=== PATIENT | male | born 1995 | race Caucasian/White ===

== ENCOUNTER 2017-10-02 18:12 | Emergency (ER) | payer MEDICAID ==
[~2017-10-02] VITALS: Ht 167.6 cm; Wt 73.0 kg
[2017-10-02 18:18] VITALS: BP 130/72
[2017-10-02] MEDS ORDERED: ACET-75 PO (19:39)
[2017-10-02] MEDS ORDERED: IBUP-1986 PO (19:39)
[2017-10-02] MEDS ORDERED: ONDA4TAB12 PO (19:39)
== END 2017-10-02 19:52 | disposition home or self-care (01) ==
LOC: ER 18:14
DX: S09.90XA Unspecified injury of head, initial encounter (principal); F07.81 Postconcussional syndrome; F15.10 Other stimulant abuse, uncomplicated; F11.10 Opioid abuse, uncomplicated; F17.210 Nicotine dependence, cigarettes, uncomplicated; Z56.0 Unemployment, unspecified; Z79.899 Other long term (current) drug therapy; W50.0XXA Accidental hit or strike by another person, initial encounter; Y93.89 Activity, other specified; Y92.89 Other specified places as the place of occurrence of the external cause; Y99.8 Other external cause status
CPT/HCPCS: 82948; 99283

== ENCOUNTER 2018-08-17 15:40 | Inpatient (IN) | payer MEDICAID ==
[~2018-08-17] VITALS: Ht 172.7 cm; Wt 68.1 kg
[~2018-08-17 15:40] MED LIST: NO HOME MEDS
[2018-08-17 21:01] VITALS: BP 117/78
[2018-08-17] MEDS ORDERED: traZODone 50mg tablet PO PRN (21:45)
[2018-08-17] MEDS ORDERED: NICOTINE POLACRILEX 4 MG LOZENGE BC PRN (21:45)
[2018-08-17] MEDS ORDERED: OLANZapine 2.5MG tablet PO SCH (21:48)
[2018-08-17] MEDS ORDERED: NICOTINE POLACRILEX 2 MG LOZENGE MM PRN ×2 (21:52→21:53)
[2018-08-17] MEDS ORDERED: tuberculin, purif. prot. deriv. 5 units/0.1ml ID ONE (22:05)
[2018-08-17] MEDS: traZODone 50mg tablet PO PRN (22:05)
[2018-08-17] MEDS ORDERED: mag hydrox/Alum hydrox/simeth 30ml oral suspension PO PRN (22:13)
[2018-08-17] MEDS ORDERED: magnesium hydroxide 30ml (MOM) UD suspension PO PRN (22:13)
--- NOTE | 2018-08-18 01:09 | NUR ---
NURSING ADMISSION NOTE: Patient arrived on the unit on 08/17/2018 at 20:20 via wheelchair. He was placed on a 5150 for DTS/DTO. Pt reports that for the past 5 years he has been hearing the voices however they started getting worse within the past month. He states that the voices told him to harm his and children and also himself but that he does not want to hurt them and he states that he does no want to hurt anyone else. He did threaten his family verbally but says he would never actually hurt them. He reports that the voices have also been telling him to hurt himself and to crash his car. He does not see a psychiatrist and is not on any medications. Pt reports he has never been hospitalized before. He denies any h/o self injurious gestures. He does report his biological father and his biological mother's mother both committed suicide. He reports he had a suicide attempt by overdosing on pills 5 years ago but was never hospitalized for it. Patient denies any current suicidal or homicidal ideations. He denies currently hearing voices but says he starts to hear them when he feels he is under stress. He has been using meth and heroin regularly "for a year or two." He smokes both. He denies any current symptoms of withdrawal . Patient is very cooperative and calm, he appears to be relieved to be on the unit.
[2018-08-18 07:19] LABS: HEMOGLOBIN A1C 4.8 % (4.5-6.2)
[2018-08-18 07:21] LABS: CHOL/HDL RATIO 3.2 (0.00-4.99); CHOLESTEROL 142 MG/DL (0-200); HDL CHOLESTEROL 45 MG/DL (35-60); LDL CHOLESTEROL 89 MG/DL (50-100); TRIGLYCERIDES 93 MG/DL (20-135)
[2018-08-18] MEDS: nicotine 21mg patch - 24 hr TD SCH (07:50)
[2018-08-18 08:00] VITALS: BP 106/70
[2018-08-18] MEDS: acetaminophen 325mg tablet PO PRN (09:26)
[2018-08-18] MEDS: hydrOXYzine 25 MG tablet PO PRN ×2 (10:23→15:41)
[2018-08-18] MEDS ORDERED: venlafaxine XR 37.5mg cap (Q24H) PO ONE (14:25)
--- NOTE | 2018-08-18 15:10 | NUR ---
Nursing Progress Note Legal hold: 5150 Client on voluntary/involuntary status for GD/DTS/DTO: dts/ dto Report received from nurse with use of SBAR: ELIANA Garza Why are they here: The patient had a disagreement with his girlfriend. He threatened to kill himself and also threatened to kill the girlfriend and her two children. He was having suicidal and homicidal thoughts, was brought to ER by girlfriend. Assessment What has happened this shift: The patient is tearful and depressed. He feels shame and guilt over threatening his family whom he loves. He is living at his grandmother's place in [place], he is trying to find a job and it is creating much stress with the family. He stated his father shot himself in the house when he was 4 years old. His mother is alive and lives in [place] but does not see her very much. He states he had been hearing a voice tell himself to kill himself but stated today he thinks it is just his own thoughts and states it is his own voice. He is very remorseful and wants to go home. He did attend groups today and is having some anxiety. He reports he has smoked heroin and meth in the past but very sporadically. He states he is not in withdrawal. He denies wanting to and says, "I just want to go home to my girlfriend." S/I, H/I: Denies A/VH: Denies Sleep: Napped ADL's: Self Group attendance:Yes Were meds taken:Yes Any med S/E: No Mental Status Exam Appearance: disheveled Eye contact:Good Behavior: Cooperative Speech: Normal Mood: Depressed Affect: Sad/tearful Thought process: Remorseful Thought Content: Wants to go home Cognition:alert and oriented Insight: poor Judgment:poor Interventions PRN's used:hydroxyzine Therapeutic interventions: Active listening, 1:1 assessment, q15m safety checks, therapeutic environment, reassurance Restraints/seclusion/emergency medication: None Justification of Continued Inpatient Treatment: Recent suicidal and homicidal thoughts. Patient requires further stabilization before returning to community
--- NOTE | 2018-08-18 16:47 | NUR ---
Malnutrition consult. Patient has no muscle weakness, no edema, documented weight history shows a 11 lb loss in 11 months, a 9% loss. Three days ago pt was documented at 70 kg on chair scale, currently 68 kg on standing scale, different weights may be r/t different scale types. Pt is 97% of his IBW. Patient has h/o polysubstance abuse which is associated with loss of appetite and weight loss. Two meals documented so far, refused one and ate 67% of the second meal. At this time patient does not meet criteria for malnutrition however will continue to monitor PO intake for further assessment. Addendum: 08/18/18 at [address] Amended: Links added.
[2018-08-18 20:00] VITALS: BP 123/79
[2018-08-18] MEDS ORDERED: ondansetron 4mg rapidly disintigrating tab PO ONE (20:05)
[2018-08-18] MEDS: traZODone 50mg tablet PO PRN (20:43)
[2018-08-18] MEDS: OLANZapine 2.5MG tablet PO SCH (20:43)
--- NOTE | 2018-08-19 01:43 | NUR ---
Nursing Progress Note Legal hold: 5150 Client on voluntary/involuntary status for GD/DTS/DTO: dts/ dto Report received from nurse with use of SBAR: ELIANA Perez Why are they here: The patient reports being under a lot of stress and arguing with his family. He threatened to kill himself and also threatened to kill the girlfriend and her two children. He was having suicidal and homicidal thoughts, was brought to ER by girlfriend. He had been reporting hearing voices x5 years but has no past psychiatric hx. Assessment What has happened this shift: Patient's /girlfriend visited this shift. They appeared very happy to see one another and smiled and held hands and talked until she had to leave. After she left patient laid down in his room and hit the call abreu multiple times wanting his HS medications. Pt was told it was too early for them at the time, he verbalized understanding. He then reported feeling nauseous, a one time dose of 4mg Zofran was given, which he said helped. He then hit the call abreu and reported he had hiccups and wasn't sure what to do, policy writer typist advised patient to sip some water and try to rest. Patient denies any current SI/HI/AH/VH. Magazine Editor asked patient if the "voices " he reported on admission were auditory hallucinations or his own thoughts. Magazine Editor described to him what intrusive thoughts were and he responded by saying, "intrusive thoughts, yes, that is exactly what it is. It is my own thoughts it's just I don't want those kind of thoughts." Patient denies having any intrusive thoughts of SI or HI this shift. S/I, H/I: Denies A/VH: Denies Sleep: see sleep assessment notation ADL's: Self Group attendance: hourly shift, no groups Were meds taken:Yes Any med S/E: None reported, none observed Mental Status Exam Appearance: disheveled, needs to shower Eye contact: fair Behavior: Cooperative Speech: Normal rate and rhythm Mood: anxious Affect: depressed Thought process: linear Thought Content: circumstantial Cognition:alert and oriented Insight: poor Judgment:poor Interventions PRN's used: zofran, nicotine sidney Therapeutic interventions: Active listening, 1:1 assessment, q15m safety checks, therapeutic environment, reassurance Restraints/seclusion/emergency medication: None Justification of Continued Inpatient Treatment: Recent suicidal and homicidal thoughts. Patient requires further stabilization before returning to community
[2018-08-19 07:46] VITALS: BP 116/72
[2018-08-19] MEDS: venlafaxine XR 75mg capsule (Q24H) PO SCH (07:53)
[2018-08-19] MEDS: nicotine 21mg patch - 24 hr TD SCH (07:53)
[2018-08-19] MEDS: hydrOXYzine 25 MG tablet PO PRN ×2 (07:53→21:00)
[2018-08-19] MEDS: acetaminophen 325mg tablet PO PRN ×2 (16:27→21:01)
--- NOTE | 2018-08-19 16:31 | NUR ---
Nursing Progress Note Legal hold: 5150 Client on voluntary/involuntary status for GD/DTS/DTO: dts/ dto Report received from nurse with use of SBAR: ELIANA Garza Why are they here: The patient reports being under a lot of stress and arguing with his family. He threatened to kill himself and also threatened to kill the girlfriend and her two children. He was having suicidal and homicidal thoughts, was brought to ER by girlfriend. He had been reporting hearing voices x5 years but has no past psychiatric hx. Assessment What has happened this shift: The patient was asleep at change of shift. Reported sleeping well. Up to breakfast and all other meals. Went to groups and had a visit this morning with his girlfriend and his grandmother. They all sat in group room at a table together and appeared to have a nice visit. Reports DONOVAN several times today for which he got Tylenol. He states, "I'm depressed." Has difficulty articulating his feelings and thoughts. States he wants to get into a recovery program and is anxious to get started . He would like to leave and asks how much longer he will be here. Depressed mood, mildly anxious affect. He is coping. He is med compliant. Denies SI and AH stating, I hear my own thoughts. S/I, H/I: Denies A/VH: Denies Sleep: Napped ADL's: Self Group Yes Were meds taken:Yes Any med S/E: None reported, none observed Mental Status Exam Appearance: Clean and neat Eye contact: good Behavior: Cooperative Speech: Normal rate and rhythm Mood: Depressed Affect: mildly anxious Thought process: linear Thought Content: circumstantial Cognition:alert and oriented Insight: poor Judgment:poor Interventions PRN's used: Atarax, Tylenol Therapeutic interventions: Active listening, 1:1 assessment, q15m safety checks, therapeutic environment, reassurance Restraints/seclusion/emergency medication: None Justification of Continued Inpatient Treatment: Recent suicidal and homicidal thoughts. Patient requires further stabilization before returning to community
[2018-08-19 20:00] VITALS: BP 130/82
[2018-08-19] MEDS: traZODone 50mg tablet PO PRN (20:59)
[2018-08-19] MEDS: OLANZapine 2.5MG tablet PO SCH (20:59)
--- NOTE | 2018-08-19 23:33 | NUR ---
Nursing Progress Note Legal hold: 5150 Client on voluntary/involuntary status for GD/DTS/DTO: dts/ dto Report received from nurse with use of SBAR: ELIANA Perez Why are they here: The patient reports being under a lot of stress and arguing with his family. He threatened to kill himself and also threatened to kill the girlfriend and her two children. He was having suicidal and homicidal thoughts, was brought to ER by girlfriend. He had been reporting hearing voices x5 years but has no past psychiatric hx. Assessment What has happened this shift: Patient's "" visited again this shift. They sit in the community room smiling and staring at one another happily. After she left pt states they had a good visit and he feels he is ready to go home tomorrow. He said he talked to the physician and he believes he will be released. We talked about the importance of taking medications as prescribed, and early intervention. He voiced understanding. He denies any current SI/HI/AH/VH. S/I, H/I: Denies A/VH: Denies Sleep: see sleep assessment notation ADL's: Self Group attendance: graphic design intern, no groups Were meds taken:Yes Any med S/E: None reported, none observed Mental Status Exam Appearance: WNL Eye contact: fair Behavior: Cooperative Speech: Normal rate and rhythm Mood: slightly anxious Affect: upbeat Thought process: linear Thought Content: focused on wanting to go home Cognition:alert and oriented Insight: fair Judgment:fair Interventions PRN's used:hydroxyzine, Tylenol Therapeutic interventions: Active listening, 1:1 assessment, q15m safety checks, therapeutic environment, reassurance Restraints/seclusion/emergency medication: None Justification of Continued Inpatient Treatment: Recent suicidal and homicidal thoughts. Patient requires further stabilization before returning to community
[2018-08-20 08:00] VITALS: BP 111/64
[2018-08-20] MEDS: venlafaxine XR 75mg capsule (Q24H) PO SCH (08:17)
[2018-08-20] MEDS: nicotine 21mg patch - 24 hr TD SCH (08:21)
[2018-08-20] MEDS: acetaminophen 325mg tablet PO PRN (14:34)
[2018-08-20] MEDS ORDERED: HYDR-3686 PO (15:42)
[2018-08-20] MEDS ORDERED: TRAZ-218 PO (15:42)
[2018-08-20] MEDS ORDERED: VENL75CA61 PO (15:42)
--- NOTE | 2018-08-20 18:03 | NUR ---
Nursing Discharge Note Pt discharged at 1805 accompanied by his girlfriend and back to his residence in [place]. Pt denies SI, in pleasant mood with good range of affect and has been improving since admission and currently in no acute physical or emotional distress. His valuables have been inventoried and returned to him. Discharge medications have been called into pt's pharmacy in [place].
== END 2018-08-20 18:05 | disposition home or self-care (01) | DRG 751 ==
LOC: ADULT MH 15:40
PROVIDERS: ADMIT Psychiatry & Neurology Psychiatry; ATTEND Psychiatry & Neurology Psychiatry
DX: F33.1 Major depressive disorder, recurrent, moderate (principal); R45.851 Suicidal ideations; F29 Unspecified psychosis not due to a substance or known physiological condition; F15.159 Other stimulant abuse with stimulant-induced psychotic disorder, unspecified; F12.20 Cannabis dependence, uncomplicated; F17.210 Nicotine dependence, cigarettes, uncomplicated; F41.9 Anxiety disorder, unspecified
CPT/HCPCS: 36415; 80061; 83036; 87070; Q0177

== ENCOUNTER 2019-03-26 02:45 | Emergency (ER) | payer MEDICAID ==
[~2019-03-26] VITALS: Ht 167.6 cm; Wt 72.0 kg
[~2019-03-26 02:45] MED LIST changes: +HYDR-3686 PO; +TRAZ-251 PO; +VENL75CA61 PO
[2019-03-26 02:46] VITALS: BP 134/72
[2019-03-26] MEDS ORDERED: acetaminophen 325mg tablet PO ONE (03:30)
== END 2019-03-26 03:52 | disposition home or self-care (01) ==
LOC: ER 02:45
DX: S00.81XA Abrasion of other part of head, initial encounter (principal); F12.90 Cannabis use, unspecified, uncomplicated; F15.90 Other stimulant use, unspecified, uncomplicated; F14.90 Cocaine use, unspecified, uncomplicated; F11.90 Opioid use, unspecified, uncomplicated; F10.99 Alcohol use, unspecified with unspecified alcohol-induced disorder; Z56.0 Unemployment, unspecified; Z79.899 Other long term (current) drug therapy; Y04.8XXA Assault by other bodily force, initial encounter; Y93.89 Activity, other specified; Y92.89 Other specified places as the place of occurrence of the external cause; Y99.8 Other external cause status; Y90.9 Presence of alcohol in blood, level not specified
CPT/HCPCS: 70450; 99284

== ENCOUNTER 2021-03-01 01:25 | Emergency (ER) | payer MEDICAID ==
[~2021-03-01] VITALS: Ht 170.2 cm; Wt 71.8 kg
[2021-03-01] MEDS ORDERED: naloxone 0.4 mg/ml inj IV ONE (01:35)
[2021-03-01] MEDS ORDERED: normal saline 1000ML IV soln IVB ONE ×2 (01:35→04:10)
--- NOTE | 2021-03-01 02:09 | NUR ---
Pt moving too much for EKG and Tech already talked to Dr Gardner about that.
[2021-03-01] MEDS ORDERED: naloxone 0.4 mg/ml inj IV PRN (03:45)
[2021-03-01] MEDS ORDERED: ONDA4TAB6 PO (04:07)
[2021-03-01] MEDS ORDERED: ondansetron/PF 4mg/2ml inj IV ONE (04:10)
[2021-03-01 05:10] VITALS: BP 120/83
== END 2021-03-01 05:12 | disposition home or self-care (01) ==
LOC: ER 01:25
DX: T40.1X1A Poisoning by heroin, accidental (unintentional), initial encounter (principal); T40.411A Poisoning by fentanyl or fentanyl analogs, accidental (unintentional), initial encounter; F12.90 Cannabis use, unspecified, uncomplicated; F15.90 Other stimulant use, unspecified, uncomplicated; F14.90 Cocaine use, unspecified, uncomplicated; F11.90 Opioid use, unspecified, uncomplicated; Z72.89 Other problems related to lifestyle; Z56.0 Unemployment, unspecified; Z79.899 Other long term (current) drug therapy; Y92.89 Other specified places as the place of occurrence of the external cause
CPT/HCPCS: 96361; 96374; 96375; 96376; 99284; J2310; J2405; J7030

== ENCOUNTER 2022-10-29 13:00 | Emergency (ER) | payer MEDICAID ==
[~2022-10-29] VITALS: Ht 177.8 cm; Wt 72.7 kg
[~2022-10-29 13:00] MED LIST changes: +ONDA4TAB6 PO
[2022-10-29 13:39] VITALS: BP 117/73
[2022-10-29] MEDS ORDERED: bacitracin 15gm ointment TP ONE (14:15)
[2022-10-29] MEDS ORDERED: LIDOcaine 1% W/epiNEPHrine 1:100,000 20ml vial IJ ONE (14:15)
== END 2022-10-29 15:12 | disposition home or self-care (01) ==
LOC: ER 13:01
DX: S61.511A Laceration without foreign body of right wrist, initial encounter (principal); F12.90 Cannabis use, unspecified, uncomplicated; F15.20 Other stimulant dependence, uncomplicated; F14.10 Cocaine abuse, uncomplicated; X58.XXXA Exposure to other specified factors, initial encounter; Y93.89 Activity, other specified; Y92.89 Other specified places as the place of occurrence of the external cause; Y99.8 Other external cause status
CPT/HCPCS: 12001; 73110; 99283; A6258; A6449